=== PATIENT | male | born 1935 | race Caucasian/White ===

== ENCOUNTER 2016-07-19 15:55 | Inpatient (IN) | payer MEDICARE, OTHER ==
--- NOTE | 2016-07-19 16:07 | HP ---
HISTORY OF PRESENT ILLNESS: This 81 year-old white male is admitted to the hospital as a direct admission from Dr. Green' office because of worsening shortness of breath and markedly worsening edema state of the lower extremities. He is having difficulty being able to manage at home where he is assisted in his care by some health givers. He has had significant worsening shortness of breath over the last 2 months but especially worse in the last 2 days. He was seen in the Emergency Room 2 days ago and was started on Bumex 2 mg a day. He was seen by fundraising officer, Dr. Richards, in the past. His daughter has Power of Theater Company Producer. In the Emergency Room, he had a saturation down to 80% on room air with an elevated BNP of 380, that was 2 days ago. He continues on the Lasix and was placed on Bumex 2 days ago, and has a Wall at home. When questioned, he admits that he sometimes skips his Lasix pills, especially before he came into the Emergency Room 2 days ago. He is now not skipping them as readily. While trying to get to the clinic today to see Dr. Green, the patient accidentally fell and landed on his daughter, and she was unable to extricate herself and required calling 911, and getting assistance from EMS. He was placed back in the car and then was brought to the clinic, and now he is admitted directly to the hospital for specific treatment to assist with his ongoing care. PAST MEDICAL HISTORY: 1. Chronic hypertension. 2. Chronic atrial fibrillation currently on Xarelto medications. 3. History of congestive heart failure with associated edema. 4. Coronary artery disease. 5. Gastroesophageal reflux disease. 6. Hypercholesterolemia. 7. History of prostate cancer followed by Dr. Mcgregor with chemotherapy injections given. PAST SURGICAL HISTORY: 1. Cholecystectomy. 2. Right total knee replacement. CURRENT MEDICATIONS: Please refer to list provided by nurses of verified home medications. ALLERGIES: NONE KNOWN. FAMILY HISTORY: Positive for coronary artery disease and cancer. 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 He stopped smoking approximately 20 years ago. REVIEW OF SYSTEMS: Weight is stable. No fever or chills recently. LUNGS: Exertional dyspnea significantly noted. HEART: No significant chest pains but some irregular pulses have been noted with his atrial fibrillation. ABDOMEN: Somewhat diminished appetite recently. No blood in the stools. He did have 1 emesis in the hospital after admission. EXTREMITIES: Significant edema and swelling especially involving the lower extremities up to the lower abdomen with pitting. NEUROLOGIC: Very weak having difficulty ambulating and will need special assistance in that regard with PT evaluation. PHYSICAL EXAMINATION: VITAL SIGNS: Temperature 99, pulse 65, blood pressure 152/66, pulse oximetry 91 % on room air. Weight 110.2 kilos. GENERAL: The patient is pleasant and able to communicate fairly well with a fair grasp of past history. A Home Healthcare hourly caregiver is present who assists with some details of past history. HEENT: Unremarkable. NECK: Supple. CHEST: Lungs have some diminished breath sounds with some rales especially in the lateral lung dale more prominent on the right than the left. CARDIOVASCULAR: Heart tones are somewhat distant and irregular. ABDOMEN: Obese, distended. No significant tenderness or organomegaly or masses noted. Bowel tones are present. EXTREMITIES: Marked edema with 4+ pitting on compression. Somewhat diminished range of motion and difficulty ambulating. LABORATORY: White count 5,900 with 73% neutrophils, [id number]. INR is prolonged at 3. Chemistry reveals potassium down to 3 and CO2 of 34, BUN 18, creatinine 0.99, glucose 111, magnesium 1.7. Creatinine kinase 826 while CK-MB is 10.4, troponin is 0.04. Albumin 3.6, beta natriuretic peptide 264. TSH is pending. Chest x-ray is performed and is portable and reveals marked cardiomegaly with mild vascular congestion which appears to be slightly improved compared to the study of 07/17/16. ASSESSMENT: 1. Chronic congestive heart failure of undetermined type with an acute exacerbation. 2. Chronic atrial fibrillation on Xarelto as well as beta bayron rate control medications. 3. Chronic edema state worsening with near anasarca presentation. 4. History of prostate cancer receiving hormone therapy. 5. Elevated CPK. 6. History of hypertension. PLAN: The patient will be admitted. Special attention to fluid restrictions. Gentle diuresis will be initiated quickly. Use Wall catheter to prevent over exertion in trying to get to a bedside commode unattended. The patient will require ongoing outpatient followup by Dr. Green after discharge. At the present time, focus on diuresis and getting rid of some of the significant pulmonary congestion, and assist his significant dyspnea. Watch his cardiac rhythm and continue with Xarelto upon discharge. #[id number] [facility]
[2016-07-19] MEDS ORDERED: SODIUM CHLORIDE 0.9% (FLUSH) 10 ML SYG IV PRN ×3 (16:31→17:37)
[2016-07-19] MEDS ORDERED: NITROGLYCERIN 0.4 MG 25 EA TAB SL PRN ×3 (16:31→17:37)
[2016-07-19] MEDS ORDERED: IV SET AND CAP CHANGE INJ INJ SCH ×2 (17:00→18:00)
[2016-07-19] MEDS: IV SET AND CAP CHANGE INJ INJ SCH (17:23)
[2016-07-19] MEDS ORDERED: MAGNESIUM HYDROXIDE 30 ML UD PO PRN (17:37)
[2016-07-19] MEDS ORDERED: ONDANSETRON INJ 4 MG/2 ML VIAL IV PRN (17:37)
[2016-07-19] MEDS ORDERED: LEVALBUTEROL NEBS 1.25 MG/3 ML VIAL INH PRN (17:37)
[2016-07-19] MEDS ORDERED: ONDANSETRON INJ 4 MG/2 ML VIAL ONE (17:40)
[2016-07-19] MEDS: IPRATROPIUM/ALBUTEROL 3 ML VIAL INH SCH ×2 (17:53→19:20)
[2016-07-19] MEDS ORDERED: ENOXAPARIN SODIUM 40 MG/0.4 ML SYG SUBCU SCH (18:00)
--- NOTE | 2016-07-19 18:17 | RAD ---
EXAM DESCRIPTION: XR CHEST 1 VIEW CLINICAL HISTORY: 81 y/o Mchf COMPARISON: 07/17/2016. FINDINGS: There is marked cardiomegaly and mild vascular congestion again visualized. The vascular congestion appears slightly improved compared to the previous study. Tortuosity and atherosclerotic calcifications in the thoracic aorta. No consolidating infiltrate or pleural effusion is visualized. There is stable elevation of the right hemidiaphragm. IMPRESSION: Marked cardiomegaly with mild vascular congestion which appears slightly improved compared to the previous study. Electronically signed by: Santos Chi MD 07/19/2016 18:15
[2016-07-19] MEDS: BUMETANIDE TAB 2 MG TAB PO SCH (18:32)
[2016-07-19] MEDS: FUROSEMIDE INJ 40 MG/4 ML VIAL IV SCH (18:32)
[2016-07-19] MEDS ORDERED: HYDROcodone 5MG/APAP 325MG 1 EA TAB PO PRN (18:42)
[2016-07-19] MEDS ORDERED: KCL 20MEQ/WATER FOR INJ 100ML 20 MEQ in PREMIX BAG 1 BAG IVPB ONE (18:48)
[2016-07-19] MEDS ORDERED: KCL 20MEQ/WATER FOR INJ 100ML 100 ML IVPB ONE (18:53)
[2016-07-19] MEDS: POTASSIUM CHLORIDE 10 MEQ TAB PO SCH (20:54)
[2016-07-19] MEDS: SODIUM CHLORIDE 0.9% (FLUSH) 10 ML SYG IV SCH (20:55)
[2016-07-19] MEDS ORDERED: FUROSEMIDE INJ 40 MG/4 ML VIAL IV ONE (21:00)
[2016-07-19] MEDS: FLUTICASONE/SALMETEROL 250/50 14 PUFF/17 GM INH INH SCH (21:40)
[2016-07-20] MEDS ORDERED: OMEPRAZOLE CAP 20 MG CAP ONE (02:49)
[2016-07-20] MEDS: OMEPRAZOLE CAP 20 MG CAP PO SCH (06:32)
--- NOTE | 2016-07-20 06:51 | RAD ---
EXAM DESCRIPTION: XR CHEST 2 VIEWS CLINICAL HISTORY: 81 y/o M, CHF COMPARISON: 07/19/2016. TECHNIQUE: Two views of the chest. FINDINGS: There is pulmonary vascular congestion. The heart is enlarged. There is no pneumothorax or pleural effusion. There is elevation the right hemidiaphragm. The bones are unchanged IMPRESSION: Pulmonary vascular congestion with cardiomegaly. Electronically signed by: Kb Moses MD 07/20/2016 06:49
[2016-07-20] MEDS: FLUTICASONE/SALMETEROL 250/50 14 PUFF/17 GM INH INH SCH ×2 (07:17→20:11)
[2016-07-20] MEDS: IPRATROPIUM/ALBUTEROL 3 ML VIAL INH SCH ×4 (07:17→20:11)
[2016-07-20] MEDS ORDERED: ISOSORBIDE MONONITRATE (IMDUR) 30 MG TAB ONE (07:30)
[2016-07-20] MEDS ORDERED: METOPROLOL SUCCINATE XL 25 MG TAB PO ONE (07:30)
[2016-07-20] MEDS: POTASSIUM CHLORIDE 10 MEQ TAB PO SCH ×2 (08:07→16:25)
[2016-07-20] MEDS: ISOSORBIDE MONONITRATE (IMDUR) 30 MG TAB PO SCH (08:42)
[2016-07-20] MEDS: BUMETANIDE TAB 2 MG TAB PO SCH (08:43)
[2016-07-20] MEDS: METOPROLOL SUCCINATE XL 25 MG TAB PO SCH (08:43)
[2016-07-20] MEDS: FUROSEMIDE INJ 40 MG/4 ML VIAL IV SCH ×2 (08:43→16:32)
[2016-07-20] MEDS: SODIUM CHLORIDE 0.9% (FLUSH) 10 ML SYG IV SCH ×2 (08:45→20:41)
[2016-07-20] MEDS ORDERED: ENOXAPARIN SODIUM 40 MG/0.4 ML SYG SUBCU ONE (19:22)
[2016-07-20] MEDS ORDERED: ENOXAPARIN SODIUM 40 MG/0.4 ML SYG SUBCU SCH (21:00)
--- NOTE | 2016-07-21 00:31 | PCM.CORE ---
Physician DVT/VTE - Nurse DVT Assessment & Total Each Risk Factor Represents 3 Points: Age over 75 years, Medical PT with Hx of [place], CHF, Severe infection/sepsis Each Risk Factor Represents 2 Points: Malignancy (present/past) Each Risk Factor Represents 1 Point: Medical PT at Bed Rest Each Risk Factor is 1 Point: Varicose Veins/Edema Legs, Obesity (BMI >25) DVT Assessment Score: 11 - 5 or more Very High Risk Treatments: Early Ambulation *, Sequential Compression Device Pharmacological: Enoxaparin 40mg SQ Daily
[2016-07-21] MEDS: OMEPRAZOLE CAP 20 MG CAP PO SCH (06:04)
[2016-07-21] MEDS: POTASSIUM CHLORIDE 10 MEQ TAB PO SCH ×2 (07:40→16:50)
[2016-07-21] MEDS: IPRATROPIUM/ALBUTEROL 3 ML VIAL INH SCH ×4 (08:30→20:49)
[2016-07-21] MEDS: FLUTICASONE/SALMETEROL 250/50 14 PUFF/17 GM INH INH SCH ×2 (08:30→20:49)
[2016-07-21] MEDS: METOPROLOL SUCCINATE XL 25 MG TAB PO SCH (08:40)
[2016-07-21] MEDS: ISOSORBIDE MONONITRATE (IMDUR) 30 MG TAB PO SCH (08:40)
[2016-07-21] MEDS: LISINOPRIL 5 MG TAB PO SCH (08:40)
[2016-07-21] MEDS: BUMETANIDE TAB 2 MG TAB PO SCH (08:40)
[2016-07-21] MEDS: FUROSEMIDE INJ 40 MG/4 ML VIAL IV SCH ×2 (08:41→16:50)
[2016-07-21] MEDS: SODIUM CHLORIDE 0.9% (FLUSH) 10 ML SYG IV SCH ×2 (08:42→21:29)
--- NOTE | 2016-07-21 10:24 | PN ---
SUPERVISING PHYSICIAN: Portillo Max MD DATE: 07-20-16 SUBJECTIVE: Mr. Xavier is feeling much better this morning after diuresis. His shortness of breath has lessened. He remains afebrile without reported chest pains or worsening shortness of breath. OBJECTIVE: VITAL SIGNS: Temperature 98.7, pulse 87, blood pressure 116/62, respirations 20, 02 saturation showing 96% on nasal cannula at 2 liters. I&O: negative balance of 1883 with 767 in and 2650 out. Weight is down from admission of 110 to 109.0 kg. CHEST: Lung sounds are diminished towards the bases, no notable rales today, rhonchi or wheezing. HEART: Slightly irregular rate and rhythm. ABDOMEN is obese and soft, non-tender, positive bowel sounds. EXTREMITIES: Continue with edema but improved from admission to 2+ bilaterally with no obvious areas of cellulitis. NEUROLOGICAL: Alert and oriented x 3. LABORATORY: White count 4.6, hemoglobin 10.3, hematocrit 30.9, platelet count 134,000, differential shows to be within normal limits. Chemistries show a potassium of 3.1 with BUN of 17, creatinine 1.15, glucose 111, liver functions within normal limits. CPK is decreased to 713 from 826 on admission. Troponin remained stable at 0.04. RADIOLOGY: Repeat chest x-ray today per radiology interpretation continues to show pulmonary vascular congestion. ASSESSMENT: 1. Chronic congestive heart failure undetermined etiology, undetermined type, with no current echocardiogram review with acute exacerbation showing some improvements in symptomatology after diuresis. 2. Chronic atrial fibrillation on Xarelto and beta bayron with stable ventricular rate. 3. Chronic edema state, worsened with initial anasarca presentation showing improvement after diuresis without any signs of cellulitis in bilateral extremities. 4. History of prostate cancer receiving current hormonal therapy. 5. Elevated CPK showing improvement. 6. History of hypertension that is stable. PLAN: The patient will be continued on diuresis with Lasix and Bumex and continued on fluid restrictions and Wall remain in place to prevent again over exertion and tight management of his intake and output. He will be started on an Geoffrey inhibitor given the anticipation of congestive heart failure with patient showing no history of an geoffrey or an arb per history. He will continue with diuresis with close monitoring in anticipation of discharge possibly tomorrow or Saturday pending reevaluation and laboratory studies. Until the, we will continue to monitor patient closely and treat appropriately. #[id number] [facility]
[2016-07-21] MEDS: PRAMIPEXOLE 0.25 MG TAB PO SCH ×2 (12:11→21:30)
[2016-07-21] MEDS: DOCUSATE SODIUM 100 MG CAP PO SCH (12:12)
[2016-07-21] MEDS: CITALOPRAM HBR 20 MG TAB PO SCH (12:13)
[2016-07-21] MEDS ORDERED: XARELTO 20 MG PO SCH (13:45)
[2016-07-21] MEDS ORDERED: RIVAROXABAN 10 MG TAB ONE (13:53)
--- NOTE | 2016-07-21 17:51 | PN ---
DATE: 07/21/16 SUPERVISING PHYSICIAN: Portillo Max M.D. SUBJECTIVE: The patient continues to do well with the diuresis. This morning he is eating breakfast. Says his breathing is much better and his legs continue to decrease with regards to edema. He remains afebrile. OBJECTIVE: VITAL SIGNS: T max 99.9, pulse 65, blood pressure 112/68, respirations 20, O2 sat showing 94% on nasal cannula at 2 liters at rest. I's and O's show a negative balance of 2485 with 1140 in, 3625 out. Weight 61.7 kg. CHEST: Lungs are clear to auscultation without any rhonchi or wheezing noted. HEART: Slightly irregular rate and rhythm. ABDOMEN: Obese but soft, non -tender. EXTREMITIES: Continue to show edema today 1+ bilaterally. NEUROLOGIC : She alert and oriented times three. LABORATORY: White count 5.1, hemoglobin 9.9, hematocrit 30.0, platelet count 129,000. Differential shows to be without a left shift. Chemistries show improved potassium but still remains low at 3.2, sodium 140, BUN 18, creatinine 0.9, glucose 107. ASSESSMENT: 1. Chronic congestive heart failure, undetermined etiology, undetermined type with no current echocardiogram for review with an acute exacerbation showing improvement after diuresis. 2. Chronic atrial fibrillation on Xarelto and beta blockers with a stable ventricular rate. 3. Chronic edema state. Initial presentation is anasarca on admission showing improvement after diuresis without any current signs of cellulitis in the bilateral lower extremities. 4. History of prostate cancer receiving current hormonal therapy. 5. Elevated CPK showing improvement. 6. History of hypertension, stable. 7. Electrolyte imbalance with moderate hypokalemia secondary to aggressive diuresis showing improvement with p.o. replacement. PLAN: Plan to continue with diuresis today and fluid restrictions in anticipation of removal of Wall in the morning and return the patient to his daily medications of Lasix 40 b.i.d. p.o. and Bumex 2 mg. He will continue with potassium replacement. He was started on an Geoffrey inhibitor and is tolerating well. Will anticipate discharge in the near future when the patient is more stable and his strength allows him to go home safely as he currently is without any sitters at home. He is awaiting his daughter's arrival in the near future and requests if possible to allow her to make arrangements for his discharge at home. Until then, will continue to monitor the patient and treat appropriately. [facility][id number] [facility]
[2016-07-22] MEDS: OMEPRAZOLE CAP 20 MG CAP PO SCH (06:17)
[2016-07-22] MEDS ORDERED: RIVAROXABAN 10 MG TAB ONE (07:13)
[2016-07-22] MEDS ORDERED: ASPIRIN (CHEWABLE) 81 MG TAB ONE (07:13)
--- NOTE | 2016-07-22 07:25 | RAD ---
EXAM DESCRIPTION: XR CHEST 2 VIEWS CLINICAL HISTORY: 81 y/o M, CHF COMPARISON: 07/20/2016. TECHNIQUE: Two views of the chest FINDINGS: The lungs are clear. The heart is enlarged. There is no pneumothorax or pleural effusion. The right hemidiaphragm is elevated. The thoracic spondylosis is noted IMPRESSION: No acute cardiopulmonary abnormality. Electronically signed by: Kb Moses MD 07/22/2016 07:23
[2016-07-22] MEDS: POTASSIUM CHLORIDE 10 MEQ TAB PO SCH ×2 (07:40→17:13)
[2016-07-22] MEDS: FLUTICASONE/SALMETEROL 250/50 14 PUFF/17 GM INH INH SCH ×2 (08:18→20:07)
[2016-07-22] MEDS: IPRATROPIUM/ALBUTEROL 3 ML VIAL INH SCH ×4 (08:18→20:07)
[2016-07-22] MEDS: METOPROLOL SUCCINATE XL 25 MG TAB PO SCH (08:29)
[2016-07-22] MEDS: ASPIRIN (CHEWABLE) 81 MG TAB PO SCH (08:29)
[2016-07-22] MEDS: DOCUSATE SODIUM 100 MG CAP PO SCH (08:29)
[2016-07-22] MEDS: CITALOPRAM HBR 20 MG TAB PO SCH (08:29)
[2016-07-22] MEDS: ISOSORBIDE MONONITRATE (IMDUR) 30 MG TAB PO SCH (08:29)
[2016-07-22] MEDS: PRAMIPEXOLE 0.25 MG TAB PO SCH ×2 (08:29→21:11)
[2016-07-22] MEDS: LISINOPRIL 5 MG TAB PO SCH (08:30)
[2016-07-22] MEDS: RIVAROXABAN 10 MG TAB PO SCH (08:30)
[2016-07-22] MEDS: SODIUM CHLORIDE 0.9% (FLUSH) 10 ML SYG IV SCH ×2 (08:34→21:11)
[2016-07-22] MEDS: FUROSEMIDE 40 MG TAB PO SCH (15:33)
--- NOTE | 2016-07-22 16:52 | PN ---
DATE: 07/22/16 SUBJECTIVE: The patient is sitting up on the side of the bed but is having difficulty getting up and walking. He is very weak and states that he has not been able to walk now for a long time at home. He lives at home alone apparently. Appetite is fair. He is tolerating the decreased fluid intake well. He has had significant diuresis. For this reason it is cut back a little bit to help maintain good kidney function. OBJECTIVE: Afebrile, pulse 64, blood pressure 100/58, pulse oximetry 93% nasal cannula. His weight is down to 107 kilos down from 109 kilos. The patient is otherwise awake and alert, and pleasant. His family is discussed at length regarding his home situation where he lives at home alone. LUNGS: Have some diminished breath sounds, fewer rhonchi today compared to a couple of days ago. ABDOMEN: Still quite obese. Still with pitting edema though less compared to admission. LABORATORY: White count 5,400, hemoglobin 10.2. Chemistry shows potassium is up to 3.6, CO2 of 36, BUN 26, creatinine 1.05, glucose 107. Chest x-ray was performed today and reveals no acute abnormalities. ASSESSMENT: 1. Chronic congestive heart failure of undetermined etiology with acute exacerbation showing some improvement clinically with diuresis. 2. Chronic atrial fibrillation on Xarelto and beta blockade with a stable ventricular rate. 3. Chronic edema state. Initial presentation is anasarca on admission showing improvement after diuresis without any current signs of cellulitis in the bilateral lower extremities. 4. History of prostate cancer having received and currently on hormone therapy. 5. Elevated CPK showing improvement. 6. History of hypertension, stable. 7. Electrolyte imbalance with moderate hypokalemia showing improvement with supplementation. PLAN: Have requested Social Service to assist with eventual [facility]cf home placement. A stepson lives in [place] while another niece apparently lives in [place]. They will work together to try to get health Power of Chef Teacher hopefully by tomorrow. The patient states that he is unable to walk. He lives at home alone which makes it a danger being at home without being able to walk. He is willing to participate in Assisted Facility rehabilitation if it will help get him strong and to the point where he would be able to return home at a later date. Close followup necessary and reevaluation. Cut back on the parenteral diuresis but continue on less diuresis with continued fluid restrictions. Reevaluate in the morning. #[id number] [facility]
[2016-07-22] MEDS: IV SET AND CAP CHANGE INJ INJ SCH (21:00)
[2016-07-23] MEDS: OMEPRAZOLE CAP 20 MG CAP PO SCH (06:12)
[2016-07-23] MEDS: POTASSIUM CHLORIDE 10 MEQ TAB PO SCH ×2 (07:28→17:07)
[2016-07-23] MEDS: IPRATROPIUM/ALBUTEROL 3 ML VIAL INH SCH ×4 (09:03→19:49)
[2016-07-23] MEDS: FLUTICASONE/SALMETEROL 250/50 14 PUFF/17 GM INH INH SCH ×2 (09:03→19:49)
[2016-07-23] MEDS: METOPROLOL SUCCINATE XL 25 MG TAB PO SCH (09:28)
[2016-07-23] MEDS: PRAMIPEXOLE 0.25 MG TAB PO SCH ×2 (09:28→20:35)
[2016-07-23] MEDS: ISOSORBIDE MONONITRATE (IMDUR) 30 MG TAB PO SCH (09:28)
[2016-07-23] MEDS: CITALOPRAM HBR 20 MG TAB PO SCH (09:28)
[2016-07-23] MEDS: LISINOPRIL 5 MG TAB PO SCH (09:28)
[2016-07-23] MEDS: ASPIRIN (CHEWABLE) 81 MG TAB PO SCH (09:28)
[2016-07-23] MEDS: DOCUSATE SODIUM 100 MG CAP PO SCH (09:28)
[2016-07-23] MEDS: RIVAROXABAN 10 MG TAB PO SCH (09:29)
[2016-07-23] MEDS: FUROSEMIDE 40 MG TAB PO SCH (09:29)
[2016-07-23] MEDS: SODIUM CHLORIDE 0.9% (FLUSH) 10 ML SYG IV SCH ×2 (09:32→19:50)
--- NOTE | 2016-07-23 15:08 | PN ---
DATE: 07/23/16 SUBJECTIVE: The patient is resting in a lounge chair. He is fairly alert and communicative. He admits he cannot walk. He lives at home alone. [facility], he is unable to participate in that aspect of rehab and is willing to consider going to a local rehab facility, which is one of our long-term facilities. OBJECTIVE: VITAL SIGNS: Afebrile. Pulse 67. Blood pressure 120/71. Pulse oximetry 94% nasal cannula. Fairly consistent excessive output over input until yesterday when the IVs were cut back. Continue to observe weight, checking for any type of weight gain suggesting fluid accumulation. No shortness of breath. LUNGS: Generally clear, though with some diminished breath sounds. No pain. The edema is still present, but it seems to be much less prominent in the lower extremities than a couple of days ago. ASSESSMENT: 1. Chronic congestive heart failure of undetermined etiology with acute exacerbation, showing improvement with diuresis. 2. Chronic atrial fibrillation on Xarelto and beta blockade for rate control with a stable ventricular rate, yet with prolonged INR. 3. Chronic edema state. Initial presentation is anasarca on admission showing improvement after diuresis, yet persistent. 4. History of prostate cancer having received and currently on Lupron hormone therapy. 5. Elevated CPK, showing improvement. 6. History of hypertension, stable. 8. Mild hypokalemia, improvement noted. PLAN: Social Service will discuss with the family in the morning the options of health power of disability attorney and DNR. The patient may require rehabilitation until he is strong enough to safely return home where he lives alone. The family is looking into long-term facilities in [place] and also closer to their home in [place]. We will repeat lab studies in the morning. Special attention to kidney function and electrolyte balance. #[id number] [facility]
[2016-07-23] MEDS ORDERED: FUROSEMIDE INJ 20 MG/2 ML VIAL IV ONE (18:49)
[2016-07-24] MEDS: OMEPRAZOLE CAP 20 MG CAP PO SCH (06:16)
--- NOTE | 2016-07-24 07:25 | RAD ---
EXAM DESCRIPTION: XR CHEST 1 VIEW CLINICAL HISTORY: 81 y/o ,M, chf COMPARISON: July 22 IMPRESSION: Stable elevation right hemidiaphragm. Cardiomegaly. Slightly increased vascular congestion. No florid alveolar edema or large effusions. Otherwise stable. Electronically signed by: Mynor Matute MD 07/24/2016 07:23
[2016-07-24] MEDS: POTASSIUM CHLORIDE 10 MEQ TAB PO SCH (07:59)
[2016-07-24] MEDS: IPRATROPIUM/ALBUTEROL 3 ML VIAL INH SCH (08:01)
[2016-07-24] MEDS: FLUTICASONE/SALMETEROL 250/50 14 PUFF/17 GM INH INH SCH (08:01)
[2016-07-24] MEDS: ASPIRIN (CHEWABLE) 81 MG TAB PO SCH (09:45)
[2016-07-24] MEDS: CITALOPRAM HBR 20 MG TAB PO SCH (09:45)
[2016-07-24] MEDS: ISOSORBIDE MONONITRATE (IMDUR) 30 MG TAB PO SCH (09:45)
[2016-07-24] MEDS: PRAMIPEXOLE 0.25 MG TAB PO SCH (09:45)
[2016-07-24] MEDS: RIVAROXABAN 10 MG TAB PO SCH (09:46)
[2016-07-24] MEDS: FUROSEMIDE 40 MG TAB PO SCH (09:46)
[2016-07-24] MEDS: LISINOPRIL 5 MG TAB PO SCH (09:47)
[2016-07-24] MEDS: DOCUSATE SODIUM 100 MG CAP PO SCH (09:47)
[2016-07-24] MEDS: METOPROLOL SUCCINATE XL 25 MG TAB PO SCH (09:47)
[2016-07-24] MEDS: SODIUM CHLORIDE 0.9% (FLUSH) 10 ML SYG IV SCH (09:48)
[2016-07-24 10:36] VITALS: BP 130/60; TEMP 98.5; O2SAT 95
--- NOTE | 2016-07-24 14:13 | DS ---
DISCHARGE SUMMARY/HISTORY AND PHYSICAL FOR SWING BED DISCHARGE DIAGNOSIS: 1. Chronic congestive heart failure of undetermined type with an acute exacerbation, showing stabilization yet requiring diuresis and fluid restrictions. 2. Chronic atrial fibrillation on Xarelto as well as rate control with beta blockade. 3. Chronic edema state, presenting with near anasarca, showing some improvement after vigorous diuresis, now on less significant diuresis and observation to continue. 4. History of prostate cancer having received and currently on Lupron hormone therapy. 5. Severe weakness with inability to walk with the patient living at home alone and requiring rehabilitation before safely returning. 6. Elevated CPK, showing improvement, possibly related to his lack of activity , slowly improved. 7. History of hypertension, stable. 8. Mild hypokalemia, improved with supplementation. HISTORY OF PRESENT ILLNESS: This 89year-old, white male is admitted to the hospital from Dr. Green' office because of worsening shortness of breath and significant edema in the lower extremities. He lives at home alone and has some folks that come in to see him, but he is at an increased danger to have some problems, so was admitted to the hospital for specific therapy. This required some vigorous IV parenteral diuresis with potassium supplementation and good diuresis to allow his weight to come down and his pulmonary edema to improve. His condition was discussed and followed up with the family including carinaon in [place] and a daughter who has the power of critical power install technician in [place]. He had moderate degree of hypoxia requiring oxygen supplementation which slowly improved as his fluid excess load improved as well. PAST MEDICAL HISTORY: 1. Chronic hypertension. 2. Atrial fibrillation. 3. Congestive heart failure. 4. Coronary artery disease. 5. Gastroesophageal reflux disease. 6. Elevated cholesterol. 7. History of prostate cancer followed by Dr. Mcgregor with Lupron injections. PAST SURGICAL HISTORY: 1. Cholecystectomy. 2. Right total knee replacement. CURRENT MEDICATIONS: Please refer to nursing notes for list of verified home medications. ALLERGIES: NONE KNOWN. FAMILY HISTORY: Positive for coronary artery disease and cancer. 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 He stopped smoking approximately 20 years ago. REVIEW OF SYSTEMS: Unremarkable except as it relates to his recent admission and his marked inability to walk and care for himself, requiring ongoing rehabilitation. PHYSICAL EXAMINATION: VITAL SIGNS: Afebrile. Pulse 66. Blood pressure 130/60. Pulse oximetry 95% on 3 liters. Weight stable at 105.23 kg, which is down approximately 4 kg from admission. GENERAL: The patient is otherwise able to communicate quite well, though tends to fall asleep easily because he is not sleeping well at night. His sleep is especially aggravated whenever he raises his legs up onto the bed and he feels better and breathes better when his legs are down, sitting up in a chair. Coloration somewhat pale. CHEST: Lungs have some rhonchi. CARDIOVASCULAR: Heart tones are slightly irregular, yet with a controlled rate. ABDOMEN: Soft with fairly good bowel tones. EXTREMITIES: 2+ pitting edema, less than on admission, but still present. LABORATORY: White count has remained within normal limits with 5,200 and 66% neutrophils on discharge. Hemoglobin stable at 10. INR prolonged at 3, down to 2.1 on the anticoagulant Xarelto. Chemistries show potassium low at 3, increasing up to 4.6 with supplementation. CO2 34, BUN 27, creatinine 0.99, glucose 114. CK went up to 826 on admission and down with increased activity to 238. Beta natriuretic peptide has increased from 264 up to 375. Liver enzymes otherwise normal. Troponin normal at 0.02. Urinalysis shows hematuria with no cultures obtained. RADIOLOGY: Chest x-ray performed on day of transfer to Swing Bed status showed some slight increased vascular congestion, but less than previously noted. Cardiomegaly is persistent. HOSPITAL COURSE: The patient's condition showed some slight improvement, though still unable to fully care for himself or to ambulate without special support. He will require further rehabilitation before he is able to safely return home. He is transferred to Swing Bed status so that he will be able to participate in that exertional opportunity. PLAN: Transfer to Swing Bed. Continue rehab until safe to be able to return home. We will continue with BiPAP administration especially at bedtime because of witnessed sleep apnea. May consider continuing it at home even though he has not used it for a number of years. We will have therapist check the machine to make sure it is functional and supportive. Reevaluation. #[id number] [facility]
== END 2016-07-24 13:44 | disposition swing bed (61) | DRG 293 ==
LOC: MS 15:55
PROVIDERS: ADMIT Family Medicine; ATTEND Emergency Medicine
DX: I11.0 Hypertensive heart disease with heart failure (principal); I50.9 Heart failure, unspecified; R60.1 Generalized edema; I48.2 Chronic atrial fibrillation; R26.2 Difficulty in walking, not elsewhere classified; E87.6 Hypokalemia; R09.02 Hypoxemia; I25.10 Atherosclerotic heart disease of native coronary artery without angina pectoris; K21.9 Gastro-esophageal reflux disease without esophagitis; G47.30 Sleep apnea, unspecified; E78.00 Pure hypercholesterolemia, unspecified; E66.9 Obesity, unspecified; Z79.01 Long term (current) use of anticoagulants; Z60.2 Problems related to living alone; Z85.46 Personal history of malignant neoplasm of prostate; Z96.651 Presence of right artificial knee joint; Z87.891 Personal history of nicotine dependence; Z68.35 Body mass index [BMI] 35.0-35.9, adult

== ENCOUNTER 2016-07-24 13:55 | Inpatient (IN) | payer MEDICARE, OTHER ==
--- NOTE | 2016-07-24 14:14 | HP ---
DISCHARGE SUMMARY/HISTORY AND PHYSICAL FOR SWING BED ADMISSION DIAGNOSIS: 1. Chronic congestive heart failure of undetermined type with an acute exacerbation, showing stabilization yet requiring diuresis and fluid restrictions. 2. Chronic atrial fibrillation on Xarelto as well as rate control with beta blockade. 3. Chronic edema state, presenting with near anasarca, showing some improvement after vigorous diuresis, now on less significant diuresis and observation to continue. 4. History of prostate cancer having received and currently on Lupron hormone therapy. 5. Severe weakness with inability to walk with the patient living at home alone and requiring rehabilitation before safely returning. 6. Elevated CPK, showing improvement, possibly related to his lack of activity , slowly improved. 7. History of hypertension, stable. 8. Mild hypokalemia, improved with supplementation. HISTORY OF PRESENT ILLNESS: This 89year-old, white male is admitted to the hospital from Dr. Green' office because of worsening shortness of breath and significant edema in the lower extremities. He lives at home alone and has some folks that come in to see him, but he is at an increased danger to have some problems, so was admitted to the hospital for specific therapy. This required some vigorous IV parenteral diuresis with potassium supplementation and good diuresis to allow his weight to come down and his pulmonary edema to improve. His condition was discussed and followed up with the family including carinaon in [place] and a daughter who has the power of patent prosecution attorney in [place]. He had moderate degree of hypoxia requiring oxygen supplementation which slowly improved as his fluid excess load improved as well. PAST MEDICAL HISTORY: 1. Chronic hypertension. 2. Atrial fibrillation. 3. Congestive heart failure. 4. Coronary artery disease. 5. Gastroesophageal reflux disease. 6. Elevated cholesterol. 7. History of prostate cancer followed by Dr. Mcgregor with Lupron injections. PAST SURGICAL HISTORY: 1. Cholecystectomy. 2. Right total knee replacement. CURRENT MEDICATIONS: Please refer to nursing notes for list of verified home medications. ALLERGIES: NONE KNOWN. FAMILY HISTORY: Positive for coronary artery disease and cancer. 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 He stopped smoking approximately 20 years ago. REVIEW OF SYSTEMS: Unremarkable except as it relates to his recent admission and his marked inability to walk and care for himself, requiring ongoing rehabilitation. PHYSICAL EXAMINATION: VITAL SIGNS: Afebrile. Pulse 66. Blood pressure 130/60. Pulse oximetry 95% on 3 liters. Weight stable at 105.23 kg, which is down approximately 4 kg from admission. GENERAL: The patient is otherwise able to communicate quite well, though tends to fall asleep easily because he is not sleeping well at night. His sleep is especially aggravated whenever he raises his legs up onto the bed and he feels better and breathes better when his legs are down, sitting up in a chair. Coloration somewhat pale. CHEST: Lungs have some rhonchi. CARDIOVASCULAR: Heart tones are slightly irregular, yet with a controlled rate. ABDOMEN: Soft with fairly good bowel tones. EXTREMITIES: 2+ pitting edema, less than on admission, but still present. LABORATORY: White count has remained within normal limits with 5,200 and 66% neutrophils on discharge. Hemoglobin stable at 10. INR prolonged at 3, down to 2.1 on the anticoagulant Xarelto. Chemistries show potassium low at 3, increasing up to 4.6 with supplementation. CO2 34, BUN 27, creatinine 0.99, glucose 114. CK went up to 826 on admission and down with increased activity to 238. Beta natriuretic peptide has increased from 264 up to 375. Liver enzymes otherwise normal. Troponin normal at 0.02. Urinalysis shows hematuria with no cultures obtained. RADIOLOGY: Chest x-ray performed on day of transfer to Swing Bed status showed some slight increased vascular congestion, but less than previously noted. Cardiomegaly is persistent. HOSPITAL COURSE: The patient's condition showed some slight improvement, though still unable to fully care for himself or to ambulate without special support. He will require further rehabilitation before he is able to safely return home. He is transferred to Swing Bed status so that he will be able to participate in that exertional opportunity. PLAN: Transfer to Swing Bed. Continue rehab until safe to be able to return home. We will continue with BiPAP administration especially at bedtime because of witnessed sleep apnea. May consider continuing it at home even though he has not used it for a number of years. We will have therapist check the machine to make sure it is functional and supportive. Reevaluation. #[id number] [facility]
[2016-07-24] MEDS ORDERED: SODIUM PHOS/BIPHOS ENEMA ADULT 133 ML BTTL PR PRN (16:59)
[2016-07-24] MEDS ORDERED: MAGNESIUM HYDROXIDE 30 ML UD PO PRN (16:59)
[2016-07-24] MEDS ORDERED: ACETAMINOPHEN 500 MG TAB PO PRN (16:59)
[2016-07-24] MEDS ORDERED: LEVALBUTEROL NEBS 1.25 MG/3 ML VIAL INH SCH (17:00)
[2016-07-24] MEDS ORDERED: LORazepam 0.5 MG TAB PO PRN (17:29)
[2016-07-24] MEDS ORDERED: FLUTICASONE/SALMETEROL 250/50 14 PUFF/17 GM INH INH SCH (20:00)
[2016-07-24] MEDS ORDERED: LEVALBUTEROL NEBS 1.25 MG/3 ML VIAL NEB ONE (20:22)
[2016-07-24 23:02] VITALS: BP 128/81; TEMP 97.1
[2016-07-25 00:52] VITALS: O2SAT 94
[2016-07-25] MEDS ORDERED: OMEPRAZOLE CAP 20 MG CAP PO SCH (06:30)
[2016-07-25] MEDS ORDERED: POTASSIUM CHLORIDE 20 MEQ TAB PO SCH (07:30)
[2016-07-25] MEDS ORDERED: ASPIRIN (CHEWABLE) 81 MG TAB PO SCH (09:00)
[2016-07-25] MEDS ORDERED: CITALOPRAM HBR 20 MG TAB PO SCH (09:00)
[2016-07-25] MEDS ORDERED: ISOSORBIDE MONONITRATE (IMDUR) 30 MG TAB PO SCH (09:00)
[2016-07-25] MEDS ORDERED: LISINOPRIL 5 MG TAB PO SCH (09:00)
[2016-07-25] MEDS ORDERED: RIVAROXABAN 10 MG TAB PO SCH (09:00)
[2016-07-25] MEDS ORDERED: METOPROLOL SUCCINATE XL 25 MG TAB PO SCH (09:00)
[2016-07-25] MEDS ORDERED: BUMETANIDE TAB 2 MG TAB PO SCH (09:00)
[2016-07-25] MEDS ORDERED: DOCUSATE SODIUM 100 MG CAP PO SCH (09:00)
--- NOTE | 2016-07-25 09:19 | DS ---
DISCHARGE DIAGNOSIS: 1. Acute cardiac arrest with cessation of cardiac and pulmonary activity, pronounced at 1:10 on 07/25/16. 2. Chronic congestive heart failure of undetermined type with an exacerbation requiring diuresis, fluid restrictions and showing some gentle response. 3. Chronic atrial fibrillation on Xarelto as well as rate control with beta blockade. 4. Chronic edema state, presenting with near anasarca, showing significant improvement after diuresis earlier on Medical/Surgical Floor with observation continuing. 5. History of prostate cancer having received and currently on Lupron hormone therapy. 6. Severe weakness with inability to walk with the patient living at home alone and requiring physical therapy rehabilitation in an attempt to be able to safely return home. 7. Elevated CPK, showing improvement, probably related to his lack of activity , improving. 8. Hypertension, stable. 9. Hypokalemia, improved with supplementation. HISTORY OF PRESENT ILLNESS: This 81-year-old, white male was admitted to the hospital from Dr. Green' office and to Medical/Surgical bed because of severe edema state and congestive heart failure with associated shortness of breath. He received fairly significant parenteral diuresis and lost a large amount of excessive fluid with improvement in the edema state, though still very tired and having difficulty walking and the patient being afraid he would end up on the floor. The family was helpful in arriving at a decision to place the patient on Swing Bed status on the day of admission and physical therapy was willing to attempt to get him a little stronger with 3, 4, or 5 days of twice a day rehabilitation. The patient was willing to go forth and give it a try to see if he could get strong enough to be able to safely return home. He was placed on Swing Bed on 07/24/16. He spent the night having some spells where he would become sleepy and somewhat confused. He would be in a position leaning towards the left side when in a chair. He would usually feel better when sitting up in the chair than when lying down. He was re-started on BiPAP which had been given to him about 4 or 5 years ago which he has not used for that same period of time. It was given because of sleep apnea which was observed on the night prior to his admission while in the hospital with apnea for many seconds before being stimulated to take a breath. He tolerated the re- introduction of the BiPAP and was resting and 1 AM on his final morning in the hospital, he was sitting up with the BiPAP, was able to talk, communicate and appeared to be a little slightly improved by the BiPAP assisting his respiratory efforts. Ten minutes later at 1:10 AM on 07/25/16, the BiPAP alarm went off and when quickly responding to the patient's room, he was found to be unresponsive with dilated pupils and no cardiac or respiratory efforts. He was pronounced by the Emergency Room physician, Dr. Whitfield. The family was notified. His body is to be donate to [employer] and [facility] was requested as the mortuary and the body released when the nurses had it ready for transport. #[id number] [facility]
== END 2016-07-25 05:40 | disposition expired | DRG 293 ==
LOC: MS 13:55
PROVIDERS: ADMIT Emergency Medicine; ATTEND Emergency Medicine
DX: I11.0 Hypertensive heart disease with heart failure (principal); I50.9 Heart failure, unspecified; I46.9 Cardiac arrest, cause unspecified; I48.2 Chronic atrial fibrillation; R60.1 Generalized edema; R74.8 Abnormal levels of other serum enzymes; E87.6 Hypokalemia; R09.02 Hypoxemia; I25.10 Atherosclerotic heart disease of native coronary artery without angina pectoris; K21.9 Gastro-esophageal reflux disease without esophagitis; G47.30 Sleep apnea, unspecified; E78.00 Pure hypercholesterolemia, unspecified; Z60.2 Problems related to living alone; Z96.651 Presence of right artificial knee joint; Z85.46 Personal history of malignant neoplasm of prostate; Z79.01 Long term (current) use of anticoagulants; Z87.891 Personal history of nicotine dependence